=== PATIENT | female | born 1995 | race Caucasian/White ===

== ENCOUNTER 2025-06-08 00:30 | Emergency (ER) | payer SELFPAY ==
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
[2025-06-08 00:45] VITALS: BP 182/99; PULSE 94; RESP 20; TEMP 36.7; O2SAT 97; BMI 40.3
[2025-06-08 00:47] VITALS: BP 182/99; PULSE 92; RESP 16; O2SAT 98
--- NOTE | 2025-06-08 00:47 | XRR_ITS ---
PROCEDURE INFORMATION: Exam: XR Chest Exam date and time: 06/08/2025 12:47 AM Age: 29 years old Clinical indication: Cough TECHNIQUE: Imaging protocol: Radiologic exam of the chest. Views: 1 view. COMPARISON: No relevant prior studies available. FINDINGS: Lungs: Unremarkable. No consolidation. Pleural spaces: Unremarkable. No pleural effusion. No pneumothorax. Heart/Mediastinum: Unremarkable. No cardiomegaly. Bones/joints: Unremarkable. XR/XR chest 1V portable [id number] IMPRESSION: No acute findings.
[2025-06-08 00:53] LABS: Glucose Urine UA Negative (Normal); Nitrate Urine Negative (Negative); Specific Gravity, Urine 1.020 (1.005-1.030)
[2025-06-08 00:55] LABS: Add Urine Microscopic? YES
[2025-06-08 00:56] LABS: HCG Qualitative Urine. Negative (Negative)
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
== END 2025-06-08 01:54 | disposition home or self-care (01) ==
PROVIDERS: Emergency Provider Emergency Medicine
DX: N39.0 Urinary tract infection, site not specified (principal)
CPT/HCPCS: 71045; 73130; 81001; 81025; 87077; 87086; 87186; 99284; J9999

== ENCOUNTER 2025-06-10 01:29 | Inpatient (IN) | payer SELFPAY ==
[2025-06-10] VITALS (8 sets, daily range): BP systolic 108–142; BP diastolic 62–89; PULSE 89–106; RESP 16–18; TEMP 36.6–37; O2SAT 95–98; BMI 48.9
--- OUTSIDE RECORDS SUMMARY | 2025-06-10 01:48 | XMS_ITS | Clinical Summary ---
Author Organization [facility] Address [address] [place] [address] donald MINERЕЛЕНА [id number] Care Team Providers Care Flask Fitter Name Role Phone Pcp Pt States None [...] patient's age to complete this topic Insurance [facility] MEDICAID [place] [id number] Care Teams Flask Fitter Relationship Specialty Start Date End Date Pcp Pt States None PCP - General Family Medicine 02/07/20
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
[2025-06-10 01:56] LABS: Hematocrit 41.1 % (36-47); Hemoglobin 13.60 g/dL (11.27-16.99); Mean Corpuscular HGB Conc 33.1 g/dL (30-55); Mean Corpuscular Hemoglobin 31.2 pg (27-33); Mean Corpuscular Volume 94.3 fl (85-98); Nucleated Red Blood Cells % 0 %; Platelet Count 333 10^3/cmm (157-399); Red Blood Count 4.36 10^6/uL (3.85-5.65); White Blood Count 16.18 10^3/uL (3.29-11.43)
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
[2025-06-10] MEDS: acetaminophen 1,000 MG/100 ML PIGGYBACK 400 MG IV (02:24)
[2025-06-10 02:33] LABS: Alcohol Level 167 mg/dL (0-10); Anion Gap 18.7 (5-19); Blood Urea Nitrogen 18 mg/dL (6-20); Calcium 8.4 mg/dL (8.5-10.5); Carbon Dioxide 21 mmol/L (22-29); Chloride 106 mmol/L (98-107); Glucose 126 mg/dL (65-115); Osmolality Calculated 297 mOsm/kg (285-295); Potassium 3.7 mmol/L (3.5-5.1); Sodium 142 mmol/L (136-145)
[2025-06-10] MEDS: lidocaine-epi 1% 20 mL INJ INJECTION (04:20)
--- NOTE | 2025-06-10 06:26 | PC.NURSE ---
96 Hour Involuntary Hold Patient Rights have been reviewed with the patient and a copy of the same has been provided to her. Author'S Agent Dell Chavis was present at bedside during the presentation of Rights.
[2025-06-10 06:43] LABS: Glucose Urine UA Negative (Normal); Nitrate Urine Negative (Negative); Specific Gravity, Urine 1.022 (1.005-1.030)
[2025-06-10 06:48] LABS: Add Urine Microscopic? YES
[2025-06-10 06:50] LABS: PCP Screen Urine Negative (Negative)
[2025-06-10 07:09] LABS: UA Slide Review UA Slide Review Perf
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
--- NOTE | 2025-06-10 09:31 | PC.OT ---
OT EVALUATION ATTEMPTED; PATIENT SLEEPING SOUNDLY/SNORING AND DOES NOT AWAKEN. WILL ATTEMPT AGAIN AT A LATER TIME.
--- NOTE | 2025-06-10 11:25 | PC.NURSE ---
No home medications found to reconcile.
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
[2025-06-11 06:00] VITALS: BP 115/59; PULSE 62; RESP 17; TEMP 36.6; O2SAT 98
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
[2025-06-11 13:38] VITALS: BP 109/60; PULSE 83; RESP 16; TEMP 36.6; O2SAT 98
[2025-06-11 20:14] VITALS: BP 114/68; PULSE 86; RESP 18; TEMP 36.5; O2SAT 99
[2025-06-12 04:00] VITALS: BP 116/63; PULSE 59; RESP 18; O2SAT 97
[2025-06-12 07:54] VITALS: BP 133/68; PULSE 78; RESP 15; O2SAT 98
[2025-06-12] MEDS: multivitamin therapeutic Tablet 1 TAB PO (08:18)
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
[2025-06-12 12:00] VITALS: BP 140/64; PULSE 74; RESP 15; TEMP 36.6; O2SAT 98
[2025-06-12 16:00] VITALS: BP 145/84; PULSE 96; RESP 17; TEMP 36.3; O2SAT 100
--- NOTE | 2025-06-12 16:42 | PC.NURSE ---
Pt is asking for something stronger for pain. Tylenol and Ibu are not helping her. I have let Dr. Alanis know this yesterday and today, so she could get a med consult.
[2025-06-12 20:00] VITALS: BP 147/70; PULSE 70; RESP 19; TEMP 36.6; O2SAT 98
[2025-06-12 23:07] VITALS: BMI 48.9
[2025-06-13] VITALS: BP 127/63; PULSE 78; RESP 16; TEMP 36.6; O2SAT 97
[2025-06-13 04:00] VITALS: BP 106/48; PULSE 66; RESP 18; O2SAT 98
[2025-06-13 07:58] VITALS: BP 128/61; PULSE 76; RESP 15; TEMP 36.4; O2SAT 97
[2025-06-13] MEDS: multivitamin therapeutic Tablet 1 TAB PO (08:02)
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
--- NOTE | 2025-06-13 13:11 | PC.NURSE ---
Dr. Castellanos came to see pt. today. to look at thyroid levels and something for acute pain.
[2025-06-13 14:00] VITALS: BP 149/71; PULSE 78; RESP 16; TEMP 36.3; O2SAT 98
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
[2025-06-13 18:33] LABS: Free T4 Free Thyroxine 0.86 ng/dL (0.82-1.77); Thyroid Stimulating Hormone 6.00 uIU/mL (0.27-4.20)
[2025-06-13 20:30] VITALS: BP 147/94; PULSE 76; RESP 18; TEMP 36.7; O2SAT 99
[2025-06-14 06:00] VITALS: BP 120/64; PULSE 78; RESP 17; TEMP 36.4; O2SAT 97
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
[2025-06-14] MEDS: multivitamin therapeutic Tablet 1 TAB PO (08:21)
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
[2025-06-14 13:53] VITALS: BP 144/87; PULSE 80; RESP 16; TEMP 36.9; O2SAT 99
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
[2025-06-14 18:45] VITALS: BP 144/87; PULSE 80; RESP 16; TEMP 36.9; O2SAT 99
--- NOTE | 2025-06-14 19:37 | PC.NURSE ---
DISCHARGE PATIENT DISCHARGED, ESCORTED TO [facility] BY SILVIO CARVALHO.
== END 2025-06-14 19:37 | disposition home or self-care (01) | DRG 876 ==
LOC: ER 05:26 → NP 06:53
PROVIDERS: Family Medicine; Admitting Provider Psychiatry & Neurology Psychiatry; Emergency Provider Emergency Medicine; Visit Provider Psychiatry & Neurology Psychiatry
DX: F33.9 Major depressive disorder, recurrent, unspecified (principal); R45.851 Suicidal ideations; Z68.42 Body mass index [BMI] 45.0-49.9, adult; F41.9 Anxiety disorder, unspecified; F17.210 Nicotine dependence, cigarettes, uncomplicated; E03.9 Hypothyroidism, unspecified; F43.10 Post-traumatic stress disorder, unspecified; E66.01 Morbid (severe) obesity due to excess calories; F10.129 Alcohol abuse with intoxication, unspecified; Y90.6 Blood alcohol level of 120-199 mg/100 ml; S01.81XA Laceration without foreign body of other part of head, initial encounter; Y04.2XXA Assault by strike against or bumped into by another person, initial encounter; S80.212A Abrasion, left knee, initial encounter; S80.211A Abrasion, right knee, initial encounter; S60.512A Abrasion of left hand, initial encounter; S60.511A Abrasion of right hand, initial encounter; Z81.1 Family history of alcohol abuse and dependence; Z81.8 Family history of other mental and behavioral disorders
CPT/HCPCS: 36415; 70450; 70486; 72125; 73030; 73110; 73130; 73562; 80048; 80306; 80307; 81001; 84436; 84439; 84443; 84702; 85025; 97150; 97165; 99285; J0131; J8540; J9999